=== PATIENT | male | born 1935 | race Caucasian/White ===

== ENCOUNTER 2021-04-24 07:29 | Day surgery (SDC) | payer MEDICARE, OTHER ==
[~2021-04-24] VITALS: Ht 172.7 cm; Wt 98.0 kg
[~2021-04-24 07:29] MED LIST: ATOR40TA PO; Amaryl2 MG PO; Aspirin EC81 MG PO; CEPH500 PO; GLIP10 PO; LEVSOD100 PO; METF500 PO; OSTEO BI-FLEX PO; PROSTATE HEALTH PO; Prinivil10 MG PO; SITA100T2 PO; TAMS.4ER PO
--- NOTE | 2021-04-24 09:05 | NUR ---
[facility]. TR band in place with 10cc in the band. Denies any discomfort.
--- NOTE | 2021-04-24 12:15 | NUR ---
PATIENT UP TO REST ROOM. TOLERATED WELL. PATIENT VERBALIZED UNDERSTANDING OF DISCHARGE IN STRUCTIONS AND PRECAUTIONS. TR BAND REMOVED SITE SOFT AND NONTENDER, NO SWELLING , NO BRUISING, SMALL BRUISE AT SITE NAD DID NOT EXPAND FROM PREVIOUS. CLOTH DOT APPLIED, WRIST BOARD PLACED ANF ARM SLING TO RIGHT ARM. IV SIT DCED WITH CATHETER INTACT. PATIENT TRANSFERRED TO WAITING CAR VIA WHEEL CHAIR. SPOKE TO DAUGHTER IN LAW [place] AND REVIEWED DISCHARGE INSTRUCTIONS AND PRECAUTIONS. SITE REVIEWED WITH HER. NO DRIVING FOR 24 HOURS AGREED TO BY PATIENT. NO FURTHER QUSETIONS
== END 2021-04-24 13:36 | disposition home or self-care (01) ==
LOC: MHTC 07:29
DX: I35.0 Nonrheumatic aortic (valve) stenosis (principal); E11.9 Type 2 diabetes mellitus without complications; E78.5 Hyperlipidemia, unspecified; I25.10 Atherosclerotic heart disease of native coronary artery without angina pectoris; Z88.8 Allergy status to other drugs, medicaments and biological substances; Z88.5 Allergy status to narcotic agent
CPT/HCPCS: 76937; 93005; 93010; 93454; 99152; C1769; C1894; J2250; J2370; J3010; J7030; J7050; Q9967